=== PATIENT | female | born 1980 | race African-American/Black ===

== ENCOUNTER 2020-05-24 15:34 | Outpatient (CLI) | payer BC, SELFPAY ==
--- NOTE | ~2020-05-24 | US_ITS ---
EXAMINATION: US pelvic complete w TV DATE: 05/24/2020 16:32 INDICATION: Enlarged uterus. Menorrhagia. Comparison:10/12/2017 TECHNIQUE: Multiple transabdominal and endovaginal sonographic images of the pelvis performed. FINDINGS: The uterus measures 10 x 6.8 x 6.6 cm . There is an exophytic hypoechoic mass of the uterus posteriorly measuring 6.2 x 5.4 x 4.7 cm, compatible with a fibroid. The endometrial complex measure s 9 mm. The right ovary measures 4 x 2.7 x 1.2 cm and the left ovary measures 2.8 x 1.2 x 1.1 cm. There are small follicles in each ovary. There is no free fluid in the pelvis. There are no abnormal masses seen on either side. IMPRESSION: 1. Enlarged fibroid uterus. Reviewed, dictated and finalized at location A. [employer] ASS[employer]ATE QUALITY CONTROL QC IMPRESSION: 1. Enlarged fibroid uterus.
--- NOTE | ~2020-05-24 | MM_ITS ---
EXAMINATION: MM screening [facility] BI w grey HISTORY: Screening mammogram TECHNIQUE: Craniocaudal and mediolateral oblique 3-D tomosynthesis images were obtained and synthetic 2-D images were generated. CAD analysis was submitted and interpreted. COMPARISON: None, baseline BREAST PARENCHYMAL COMPOSITION: The breasts are heterogeneously dense, which may obscure small masses . FINDINGS: RIGHT BREAST: There are possible masses in the subareolar aspect of the breast. No suspicious calcifi cation or architectural distortion are identified. LEFT BREAST: Asymmetry is seen in the anterior third of the breast on the mediolateral oblique view. No suspicious calcification or architectural distortion are identified. IMPRESSION: 1. Bilateral breast findings as described above. 2. Additional mammographic views and possible breast ultrasound are recommended to evaluate for malig anthony and establish a baseline given that this is the first mammographic examination. BI-RADS Category 0: Incomplete: Needs additional imaging evaluation. Reviewed, dictated and finalized at location A. E DELIVERY DRIVER IMPRESSION: 1. Bilateral breast findings as described above. 2. Additional mammographic views and possible breast ultrasound are recommended to evaluate for malignancy and establish a baseline given that this is the fir st mammographic examination. BI-RADS Category 0: Incomplete: Needs additional imaging evaluation.
== END 2020-05-24 15:35 | disposition home or self-care (01) ==
LOC: ANHIMG 15:37
PROVIDERS: PCP Physician Assistant; Visit Provider Obstetrics & Gynecology
DX: Z12.31 Encounter for screening mammogram for malignant neoplasm of breast (principal); N85.2 Hypertrophy of uterus; R92.8 Other abnormal and inconclusive findings on diagnostic imaging of breast; D25.9 Leiomyoma of uterus, unspecified
CPT/HCPCS: 76830; 76856; 77063; 77067

== ENCOUNTER → 2020-08-06 01:20 | Outpatient (CLI) | payer BC, SELFPAY ==
[2020-08-06 23:34] LABS: SARS-CoV-2 RNA PCR Negative
== END ==
PROVIDERS: PCP Physician Assistant; Visit Provider Obstetrics & Gynecology
DX: Z01.812 Encounter for preprocedural laboratory examination (principal); Z20.822 Contact with and (suspected) exposure to COVID-19
CPT/HCPCS: C9803; U0003; U0005

== ENCOUNTER 2020-08-10 00:37 | Day surgery (SDC) | payer BC, SELFPAY ==
[2020-08-01 15:39] VITALS: BMI 32.3
--- NOTE | 2020-08-10 05:10 | PM.IMHP ---
H&P: HPI History of Present Illness Date/Time: 08/10/20 05:10 Chief Complaint: 1.Abnormal bleeding Narrative: Jethro Glover is a 40 year old female with history of abnormal uterine bleeding. Subsequent ultrasound showed fibroid uterus which she has had a history of . The fibroid has increased mildly from previous ultrasound. She was informed that based on location of fibroid this is most likely not the cause of the irregular bleeding. She had an endometrial biopsy. The biopsy showed possible endometrial polyp. She has been given options for treatment of abnormal bleeding and fibroids. She has opted to do a hysteroscopy D and C and polyp removal if present. Review of Systems Review of Systems: All systems reviewed & are unremarkable except as noted in HPI and below Cardiovascular: Cardiovascular: Reports no additional cardiovascular complaints, Denies chest pain and Denies dyspnea Respiratory: Respiratory: Reports no additional respiratory complaints and Denies dyspnea Gastrointestinal: Gastrointestinal: Reports abdominal pain, Denies change in bowel habits, Denies diarrhea, Denies nausea and Denies vomiting Genitourinary: Genitourinary: Reports pelvic pain Musculoskeletal: Musculoskeletal: Reports back pain Integumentary/Breasts: Skin/Breast: Reports system reviewed and no additional complaints, except as docu Neurologic: Reports system reviewed and no additional complaints, except as documented PMF Past Medical History Medical History (Updated 08/10/20 @ 06:48 by Alonzo Mora MD) Abnormal uterine bleeding Obesity Vaginal delivery x2 Surgical History Surgical History History of tubal ligation Family History Family History Father Hypertension Family history of diabetes mellitus in first degree relative Mother Hypertension Family history of diabetes mellitus in first degree relative Social History Social History Smoking status: Never smoker Second hand tobacco smoke exposure: No Alcohol intake: current Drinks per week: 2 Alcohol use details: mostly weekends Living arrangements: with family Spiritual care concerns: No Meds Home Medications and Allergies Home Medications Medication Instructions Recorded Confirmed Type valacyclovir 500 mg tablet 500 mg PO Q12H PRN #30 tablet 05/03/20 08/10/20 Rx Lactobacillus rhamnosus GG 10 1 cap PO DAILY 08/04/20 08/04/20 History billion cell capsule metronidazole 500 mg tablet 500 mg PO Q12H #14 tablet 08/04/20 08/04/20 Rx Allergies Allergy/AdvReac Type Severity Reaction Status Date / Time No Known Allergies Allergy Unknown Verified 08/10/20 06:27 Exam Const: Orientation/consciousness: oriented to person and oriented to place HENMT: Head: normal to inspection Eyes: General: appearance normal, both eyes and all related structures Resp: Effort & Inspection: normal respiratory effort Auscultation: clear to auscultation bilaterally Cardio: Rate: regular rate Rhythm: regular rhythm GI: Inspection: normal to inspection GI Palp: No Rebound tenderness present : External Female Exam: normal external appearance Speculum Exam - Vagina: normal appearance of the vagina Speculum Exam - Cervix: normal appearance of the cervix Bimanual exam- vagina & uterus: other (uterus mildly enlarged) Bimanual Exam- Adnexa, other: no masses and no tenderness Neuro: General: oriented to person and oriented to place Cognition (Neuro): normal cognition Extrem: General: normal to inspection Psych: Appearance: grossly normal and well kempt Assessment and Plan Assessment and plan (1) Abnormal uterine bleeding: Code(s): N93.9 - Abnormal uterine and vaginal bleeding, unspecified Status: Acute Assessment and Plan: Will perform hysteroscopy and di
--- NOTE | 2020-08-10 06:48 | WPDANESEPPF ---
Anes - Initial Pre Proc Eval Procedure: Operation Date: 08/10/20 07:30 Proposed Procedures p Hysteroscopy Dilation and Curettage With Myosure - Karlos Malcolm MD Date/Time: 08/10/20 06:48 Surgeon: Karlos Malcolm MD Pre Op Diagnosis: Endometrial Polyp Patient Data Age: 40 Gender: F Height: 1.6 m Weight: 82.72 kg Allergies Allergy/AdvReac Type Severity Reaction Status Date / Time No Known Allergies Allergy Unknown Verified 08/10/20 06:27 Home Medications Medication Instructions Recorded Confirmed Type valacyclovir 500 mg tablet 500 mg PO Q12H PRN #30 tablet 05/03/20 08/10/20 Rx Lactobacillus rhamnosus GG 10 1 cap PO DAILY 08/04/20 08/04/20 History billion cell capsule metronidazole 500 mg tablet 500 mg PO Q12H #14 tablet 08/04/20 08/04/20 Rx Patient hx anesthesia problems: none Family hx anesthesia problems: none PMFSH Past Medical History Medical History (Updated 08/10/20 @ 06:48 by Alonzo Mora MD) Abnormal uterine bleeding Obesity Vaginal delivery x2 Surgical History Surgical History History of tubal ligation Family History Family History Father Hypertension Family history of diabetes mellitus in first degree relative Mother Hypertension Family history of diabetes mellitus in first degree relative Social History Social History Smoking status: Never smoker Second hand tobacco smoke exposure: No Alcohol intake: current Drinks per week: 2 Alcohol use details: mostly weekends Living arrangements: with family Spiritual care concerns: No Anes - Eval Final PreProcedure Day of Procedure 08/10/20 06:48 Patient weight: obese Heart: regular rate and rhythm Lungs: clear to auscultation and normal air movement Airway: Mallampati scale class II Neurological: alert and oriented Last oral intake: >/= 8 hours ASA classification: II Emergent: no Anesthetic plan: proceed Anesthesia type and monitoring: general GIVS and LMA Informed Consent: The patient's anesthetic plan and its attendant risks and benefits were discussed with the patient/family/POA. Questions were solicited and answers provided to the satisfaction of the patient/family/POA.
[2020-08-10] MEDS: ACETAMINOPHEN 500 MG TABLET 1000 MG PO (07:04)
[2020-08-10] MEDS: LACTATED RINGERS 1,000 ML 30 ML IV CONT (07:04)
--- NOTE | 2020-08-10 07:05 | WPDHPUPDATE1 ---
History and Physical Update Update Date/Time: 08/10/20 07:05 History and Physical has been reviewed, including an updated exam of the patient. There are NO changes in the patient's condition. Risks, benefits, and alternatives have been discussed and questions answered. Patient agrees to proceed with procedure.
[2020-08-10 07:07] VITALS: BP 139/83; PULSE 74; RESP 16; TEMP 36.6; O2SAT 100; BMI 32.2
[2020-08-10] MEDS: ceFAZolin 2 GM/D5W 50 ML 2 GM/50 ML BAG IVPB (07:29)
[2020-08-10 07:55] VITALS: BP 122/63; PULSE 94; RESP 14; O2SAT 99
--- NOTE | 2020-08-10 08:00 | PM.PROC ---
Procedure Note - Detailed Date of procedure: 08/10/20 Pre-op diagnosis: Endometrial Polyp 1. Abnormal uterine bleeding. Post-op diagnosis: other (1. Abnormal uterine bleeding 2. Endometrial polyp) Procedure performed: Diagnostic Hysteroscopy and Dilation and Currettage Description of procedure: After informed consent was obtained patient was taken to the operating room. Adequate IV sedation was obtained. she was placed in high lithotomy position and prepped and draped in sterile fashion. Attention was turned to the vagina. Speculum was inserted. Single-tooth tenaculum placed on anterior lip of the cervix. The uterus was sounded to 8.5 centimeters. The cervix was dilated to a size 8 Hill dilator. The hysteroscope was inserted. The cavity assessment was normal. There are no lesions or abnormal areas noted. The hysteroscope was removed and a sharp curettage was performed. Scant tissue obtained. The tenaculum was removed hemostasis was noted at the tenaculum site. The speculum was removed. The patient tolerated the procedure well. There was 300cc in and out of normal saline insufflation fluid. Sponge count correct. Patient was taken to recovery room in stable condition. Anesthesia: MAC and local Surgeon: Karlos Malcolm MD Estimated blood loss (mL): 5 Drains: No Packing: No Pathology: yes (1. Endometrial currettings) Complications: No immediate complications Condition: stable Disposition: same day Findings: Uterus sound to 8.5cm, uterine cavity normal appearing, no lesions. Insufflation fluid 300cc In/300cc out.
[2020-08-10 08:10] VITALS: BP 123/64; PULSE 82; RESP 20
[2020-08-10 08:40] VITALS: BP 135/91; PULSE 79; RESP 20
== END 2020-08-10 08:48 | disposition home or self-care (01) ==
PROVIDERS: PCP Physician Assistant; Visit Provider Obstetrics & Gynecology
PROC: 0U5B8ZZ Destruction of Endometrium, Via Natural or Artificial Opening Endoscopic (ICD-10-PCS; CPT 58563; principal; 2020-08-10 07:30)
DX: N93.9 Abnormal uterine and vaginal bleeding, unspecified (principal); N84.0 Polyp of corpus uteri; E66.9 Obesity, unspecified; Z68.32 Body mass index [BMI] 32.0-32.9, adult
CPT/HCPCS: 58558; 88305; A9270; C9803; J0690; J2250; J3010; J7030; J7120; U0003; U0005

== ENCOUNTER 2020-08-16 11:41 | Outpatient (CLI) | payer BC, SELFPAY ==
--- NOTE | ~2020-08-16 | MMUS_ITS ---
EXAMINATION: MM diagnostic [facility] BI w grey, US breast BI complete HISTORY: Possible masses suggested in subareolar aspect of right breast. Asymmetry reported in anteri or third of left breast on MLO view of bilateral 05/24/2020 screening mammogram TECHNIQUE: ML, MLO and craniocaudal full field and spot 3-D tomosynthesis images of both breasts were performed and synthetic 2-D images were generated. CAD analysis was submitted and interpreted. High resolution complete bilateral breast ultrasound was performed. COMPARISON: 05/24/2020 bilateral digital screening mammogram BREAST PARENCHYMAL COMPOSITION: The breasts are heterogeneously dense, which may obscure small masses . FINDINGS: MAMMOGRAPHIC FINDINGS: No definite reproducible mass is evident, but the dense heterogeneous stroma may obscure masses. For this reason, bilateral complete breast ultrasound examination was performed. No architectural distortion, skin thickening or retraction or malignant calcification of either breas t is evident. ULTRASOUND: There is dense tissue throughout both breasts. Right breast 10:00 3 cm from nipple: There is a parallel circumscribed hypoechoic 5.9 x 2.8 x 6.1 mm solid lesion without internal vascularity or posterior shadowing, most consistent with benign proces s. No suspicious mass or shadowing of either breast is noted. IMPRESSION: 1. No mammographic evidence of malignancy 2. Routine annual mammographic screening is recommended. BI-RADS Category 2: Benign finding(s). Reviewed, dictated and finalized at location A. LATORY COMPLIANCE DIRECTOR IMPRESSION: 1. No mammographic evidence of malignancy 2. Routine annual mammographic screening is recommended. BI-RADS Category 2: Benign finding(s).
== END 2020-08-16 11:42 | disposition home or self-care (01) ==
LOC: ANHIMG 11:44
PROVIDERS: PCP Physician Assistant; Visit Provider Obstetrics & Gynecology
DX: N63.11 Unspecified lump in the right breast, upper outer quadrant (principal)
CPT/HCPCS: 76641; 77062; 77066; G0279

== ENCOUNTER 2023-04-18 15:51 | Outpatient (CLI) | payer OTHER, SELFPAY ==
--- NOTE | ~2023-04-18 | US_ITS ---
EXAMINATION: US pelvic complete w TV DATE: 04/18/2023 16:39 INDICATION: Hypertrophy of uterus. TECHNIQUE: Multiple transabdominal and transvaginal sonographic images of the pelvis were obtained. COMPARISON: Ultrasound pelvis 05/24/2020 FINDINGS: TRANSABDOMINAL ULTRASOUND: The uterus measures 12.6 x 9.5 x 9.4 cm. There is no free fluid in the pelvis. TRANSVAGINAL ULTRASOUND: There is a 6.0 cm subserosal fibroid. There are multiple ill-defined uterine fibroids that give the u terus a lobular surface. The endometrial complex measures 4 mm in thickness. The right ovary measure s 4.6 x 3.1 x 3.6 cm. The left ovary measures 4.2 x 3.5 x 3.2 cm. There is normal vascular flow in th e ovaries. IMPRESSION: 1. Uterine fibroids. Reviewed, dictated and finalized at location E. PICU IMPRESSION: 1. Uterine fibroids.
[2023-04-18 17:00] LABS: Basophils Percent Auto 0.3 % (0.2-1.2); Eosinophils Percent Auto 0.3 % (0-4.4); Hematocrit 35.8 % (37.0-47.0); Hemoglobin 12.1 g/dL (12.0-15.0); Immature Granulocyte Absolute 0.01 K/mm3 (0.00-0.031); Immature Granulocyte Percent A 0.3 % (0-0.5); Lymphocytes Absolute Auto 1.76 K/mm3 (0.9-3.2); Lymphocytes Percent Auto 54.5 % (18.3-44.2); Mean Corpuscular HGB Conc 33.8 g/dl (32-36); Mean Corpuscular Hemoglobin 31.1 pg (26-34); Mean Platelet Volume 9.3 fl (7.4-10.4); Monocytes Absolute Auto 0.3 K/mm3 (0.1-0.6); Monocytes Percent Auto 8.4 % (2.6-8.5); Neutrophils Absolute Auto 1.2 K/mm3 (1.3-6.7); Neutrophils Percent Auto 36.2 % (45.5-73.1); Platelet Count Result 241 k/mm3 (150-375); Red Blood Count 3.89 M/mm3 (4.2-5.4); Red Cell Distribution Width 13.3 % (11.5-14.5); White Blood Count 3.2 K/mm3 (4.5-10.0)
[2023-04-18 17:04] LABS: Alanine Aminotransferase 14 U/L (6-35); Albumin Level 4.6 g/dL (3.5-5.1); Alkaline Phosphatase 46 U/L (38-126); Anion Gap 8 mmol/L (8-16); Aspartate Amino Transferase 22 U/L (14-36); Bilirubin,Total 0.5 mg/dL (0.2-1.3); Blood Urea Nitrogen 14 mg/dL (7-17); Calcium 9.5 mg/dL (8.4-10.2); Carbon Dioxide 26 mmol/L (22-30); Chloride 103 mmol/L (98-107); Cholesterol 171 mg/dL (0-200); Estimated Glomerular Filt Rate > 60; Glucose 93 mg/dL (65-110); HDL Direct 72 mg/dL; Potassium 3.5 mmol/L (3.4-5.0); Sodium 137 mmol/L (137-145); Triglycerides 56 mg/dL (<150)
[2023-04-18 17:15] LABS: LDL Cholesterol Direct 64 mg/dL
[2023-04-18 18:17] LABS: Vitamin D 25 Hydroxy 17.1 ng/mL
== END 2023-04-18 15:52 | disposition home or self-care (01) ==
PROVIDERS: Visit Provider Obstetrics & Gynecology
DX: Z00.00 Encounter for general adult medical examination without abnormal findings (principal); N85.2 Hypertrophy of uterus; D25.9 Leiomyoma of uterus, unspecified
CPT/HCPCS: 36415; 76830; 76856; 80053; 80061; 82306; 82728; 84443; 85025

== ENCOUNTER → 2023-06-12 12:07 | Outpatient (CLI) | payer OTHER, SELFPAY ==
--- NOTE | ~2023-06-12 | MM_ITS ---
EXAMINATION: MM screening [facility] BI w grey HISTORY: Screening mammogram TECHNIQUE: Craniocaudal and mediolateral oblique 3-D tomosynthesis images were obtained and synthetic 2-D images were generated. CAD analysis was submitted and interpreted. COMPARISON: 08/16/2020, 05/24/2021 BREAST PARENCHYMAL COMPOSITION: The breasts are heterogeneously dense, which may obscure small masses . FINDINGS: No suspicious mass, calcification, or architectural distortion are identified in either milla ast to suggest malignancy. There has been no suspicious interval change. IMPRESSION: 1. No mammographic evidence of malignancy. 2. Recommend routine screening mammography in one year. BI-RADS Category 1: Negative Reviewed, dictated and finalized at location A. D REPRESENTATIVE
== END ==
PROVIDERS: PCP Obstetrics & Gynecology; Visit Provider Obstetrics & Gynecology
DX: Z12.31 Encounter for screening mammogram for malignant neoplasm of breast (principal)
CPT/HCPCS: 77063; 77067